=== PATIENT | female | born 1995 | race Hispanic/Latino ===

== ENCOUNTER 2023-12-21 08:16 | Emergency (ER) | payer SELFPAY ==
[~2023-12-21] VITALS: Ht 167.6 cm; Wt 99.8 kg
[2023-12-21 08:29] VITALS: PULSE 96; RESP 15; TEMP 98.7
[2023-12-21] MEDS: IBUPROFEN 400 MG TAB PO ONE (10:10)
[2023-12-21 10:12] VITALS: BP 115/71; PULSE 90; RESP 16; O2SAT 100
== END 2023-12-21 10:12 | disposition home or self-care (01) ==
LOC: ER 08:50
DX: R06.00 Dyspnea, unspecified (principal); B34.9 Viral infection, unspecified; R05.9 Cough, unspecified; Z11.52 Encounter for screening for COVID-19
CPT/HCPCS: 0223U; 36415; 87400; 99283